=== PATIENT | female | born 1945 | race Caucasian/White ===

== ENCOUNTER 2016-07-19 15:48 | Emergency (ER) | payer MEDICARE ==
[~2016-07-19] VITALS: Ht 167.6 cm; Wt 65.0 kg
[~2016-07-19 15:48] MED LIST: DICL25 PO; MOBI7.5T PO
[2016-07-19 15:50] VITALS: BP 162/86; PULSE 85; RESP 16; TEMP 98.1; O2SAT 98
--- NOTE | 2016-07-19 17:05 | RADRPT ---
EXAM DATE/TIME: 07/19/2016 16:47 [place] COMPARISON: No previous studies available for comparison. INDICATIONS : Patient complains of left hip pain. No known injury. MEDICAL HISTORY : None. SURGICAL HISTORY : Bilateral hip total arthroplasty. ENCOUNTER: Initial ACUITY: 3 weeks PAIN SCORE: 5/10 LOCATION: Left Hip FINDINGS: Bilateral total hip arthroplasties are noted and stable in appearance. There is some heterotopic bone adjacent to the left trochanter and acetabulum. No radiographic evidence of loosening. CONCLUSION: No acute disease. Ney Jenkins MD on July 19, 2016 at 17:03 Board Certified Radiologist. This report was verified electronically.
--- NOTE | 2016-07-19 17:11 | PD ---
HPI Chief Complaint: Pain: Acute or Chronic Time Seen by Provider: 16:51 Travel History International Travel<30 days: No Contact w/Intl Traveler<30days: No Traveled to known affect area: No History of Present Illness HPI 70-year-old female presents to the emergency Department with complaint of left hip pain with worsening this morning. She has history of chronic bilateral hip pain with bilateral hip replacements many years ago. She has been helping her a lot and thinks that it may have exacerbated some pain. She denies traumatic injury. Denies fall. Denies paresthesias, loss of sensation, decreased range of motion, decreased strength to the affected extremity. Denies pain at this time in the ER. Said the pain lasted many hours this morning and finally subsided while she's been waiting to be seen. Denies fever , chills, nausea, vomiting. She did not take any medications or tried any treatments to alleviate her symptoms. Denies dysuria, urgency, frequency. Pain radiated from her mid buttocks down the back of her leg. PFSH Past Medical History Arthritis: Yes Autoimmune Disease: No Blood Disorders: No Heart Rhythm Problems: Yes (WPW) Cancer: No Cardiac Catheterization: Yes Cardiovascular Problems: Yes (cardiac arrythmia) High Cholesterol: No Chemotherapy: No Chest Pain: No Congestive Heart Failure: No Diabetes: No Genitourinary: No Hypertension: No Musculoskeletal: Yes Neurologic: No Psychiatric: No Respiratory: No Myocardial Infarction: No Radiation Therapy: No ?: Not Past Surgical History Abdominal Surgery: No AICD: No Appendectomy: Yes Body Medical Devices: JOINR REPLACEMENT Cardiac Surgery: No Section: Yes (x2) Coronary Artery Bypass Graft: No Ear Surgery: No Endocrine Surgery: No Eye Surgery: No Genitourinary Surgery: No Gynecologic Surgery: Yes () Oral Surgery: No Pacemaker: No Thoracic Surgery: No Other Surgery: Yes (TUMOR REMOVED R FOOT) Social History Alcohol Use: No Tobacco Use: No Substance Use: No Allergies-Medications (Allergen,Severity, Reaction): Coded Allergies: Adhesives (Verified Allergy, Severe, TAPE, 07/19/16) Pronestyl (Verified Allergy, Severe, Rash, 07/19/16) Chocolate (Verified Adverse Reaction, Severe, NAUSEA/VOMITING, 07/19/16) Uncoded Allergies: CHOCOLATE (Allergy, Unknown, NAUSEA & VOMITING, 01/31/05) TAPE (Allergy, Unknown, 01/31/05) Reported Meds & Prescriptions Reported Meds & Active Scripts Active Robaxin (Methocarbamol) 500 Mg Tab 500 Mg PO QID PRN Mobic (Meloxicam) 7.5 Mg Tab 7.5 Mg PO Q12HR Reported Voltaren (Diclofenac Sodium) 25 Mg Tab 25 Mg PO BID PRN Review of Systems Except as stated in HPI: all other systems reviewed are Neg Physical Exam Narrative GENERAL: Well-nourished, well-developed elderly, female patient, in no acute distress SKIN: Warm and dry. HEAD: Atraumatic. Normocephalic. EYES: Pupils equal and round. No scleral icterus. No injection or drainage. ENT: Mucosa pink and moist. Airway patent. NECK: Trachea midline. CARDIOVASCULAR: Regular rate. RESPIRATORY: No accessory muscle use. GASTROINTESTINAL: Round. MUSCULOSKELETAL: Left hip with full range of motion and without erythema, edema , ecchymosis; without tenderness on palpation to the anterior, lateral, posterior aspect; without tenderness on abduction. No leg length discrepancy. Left lower extremity is supple and non-tense with 2+ pedal pulse and sensory intact. NEUROLOGICAL: Awake and alert. Oriented 3. No obvious cranial nerve deficits. Motor grossly within normal limits. Normal speech. PSYCHIATRIC: Appropriate mood and affect; insight and judgment normal. Data Data Last Documented VS Vital Signs Date Time Temp Pulse Resp B/P Pulse Ox O2 Delivery O2 Flow Rate FiO2 07/19/16 15:50 98.1 85 16 162/86 98 Orders Hip, Uni(Ap&Lat) W Ap Pelvis (07/19/16 16:05) [facility] Medical Decision Making Medical Screen Exam Complete: Yes Emergency Medical Condition: Yes Medical Record Reviewed: Yes Differential Diagnosis Sciatica, low back strain, arthritis, hip pain Narrative Course 70-year-old female with left hip pain that has subsided prior to physical examination. Denies injury. History of bilateral hip replacements. Left lower extremity is with full range of motion and no tenderness on abduction. Left hip x-ray with no acute findings. Patient has no pain at this time. Robaxin prescribed for home. Patient is medically cleared and stable for discharge. Discussed reasons to return to the emergency department. Instructed patient to follow up with primary care provider. Patient agrees with treatment plan. The patients vital signs are stable and the patient is stable for outpatient follow-up and treatment. Patient discharged home, stable and in no acute distress. Diagnosis Primary Impression: Left hip pain Referrals: Orthopedist Primary Care Physician Patient Instructions: General Instructions, Hip Pain (ED), Sciatica (ED) Additional Instructions: Tylenol as directed and as needed for pain Robaxin as prescribed and as needed for muscle spasms Rest, ice, compress, and elevate extremity to decrease pain and inflammation Walker for support as needed Avoid aggravating activity; increase activity as tolerated Follow-up with primary care provider Follow-up with orthopedic Return to the emergency department immediately with worsening symptoms Med/Other Pt SpecificInfo: Prescription(s) given Scripts Methocarbamol (Robaxin)500 Mg [id number] Mg PO QID PRN (MUSCLE SPASM) #30 TAB Ref 0 Prov:Maite Fuentes 07/19/16 Disposition: 01 DISCHARGE HOME Condition: Stable Maite Fuentes Jul 19, 2016 17:11
[2016-07-19] MEDS ORDERED: ROBA500T PO (17:20)
== END 2016-07-19 17:34 | disposition home or self-care (01) ==
LOC: NEPB 15:48
DX: M25.552 Pain in left hip (principal); G89.29 Other chronic pain; Z96.643 Presence of artificial hip joint, bilateral
CPT/HCPCS: 73502; 99283

== ENCOUNTER 2017-03-04 02:15 | Emergency (ER) | payer OTHER, MEDICARE ==
[~2017-03-04] VITALS: Ht 170.2 cm; Wt 58.0 kg
[~2017-03-04 02:15] MED LIST changes: +ROBA500T PO
[2017-03-04 02:16] VITALS: BP 127/82; PULSE 72; RESP 16; TEMP 98.7; O2SAT 98
[2017-03-04] MEDS ORDERED: TETANUS/DIPHTHERIA TOXOID ADULT 0.5 ML VIAL IM ONE (02:45)
[2017-03-04 03:06] VITALS: BP 121/81; PULSE 73; RESP 17; O2SAT 97
--- NOTE | 2017-03-04 03:06 | PD ---
Physical Exam Date Seen by Provider: Mar 04, 2017 Time Seen by Provider: 03:05 Narrative For full history and physical examination please see attending provider's note. Data Data Last Documented VS Vital Signs Date Time Temp Pulse Resp B/P (MAP) Pulse Ox O2 Delivery O2 Flow Rate FiO2 03/04/17 02:16 98.7 72 16 127/82 (97) 98 Room Air Orders Orders Tetanus/Diphtheria Tox Adult (Tetanus/Di (03/04/17 02:45) MDM Medical Record Reviewed: Yes Supervised Visit with RUTHANN: Yes Procedures Procedure Narrative LACERATION LOCATION: Left inner forearm just distal to the elbow LENGTH: 4 centimeters NUMBER OF STITCHES/CANDI: 9 stitches REPAIR: The area of the laceration was prepped with Betadine and sterilely draped. The laceration was infiltrated with 1% lidocaine. The wound was copiously irrigated and explored without evidence of foreign body, tendon injury or neurovascular injury. The wound was closed using 4-0 Ethilon. This was a1 layer repair. A sterile dressing was applied. The patient was advised to keep the dressing clean and dry. Patient tolerated the procedure well. Aline Butt Mar 04, 2017 03:06
--- NOTE | 2017-03-04 03:33 | PD ---
HPI Chief Complaint: Laceration/Skin Injury Time Seen by Provider: 02:40 Travel History International Travel<30 days: No Contact w/Intl Traveler<30days: No Traveled to known affect area: No History of Present Illness HPI while patient was getting her laceration repaired by gibran swan, patient complained of a transient spell of dizziness, patient was transfer to my pod at that time. patient states that since of her she has been staying up and not eating well for past few days as well. pt denies any alleviating/ aggravating factors. pt denies associated factors such as rivera/cp/abdpain/n/v/d/ fever/cough/urinary frequency or dysuria pcp: none pmhx: wpw s/p ablation pshx: hip repair gianfranco, appy PFSH Past Medical History Arthritis: Yes Autoimmune Disease: No Blood Disorders: No Heart Rhythm Problems: Yes (WPW) Cancer: No Cardiac Catheterization: Yes Cardiovascular Problems: Yes (cardiac arrythmia) High Cholesterol: No Chemotherapy: No Chest Pain: No Congestive Heart Failure: No Diabetes: No Diminished Hearing: No Genitourinary: No Hypertension: No Musculoskeletal: Yes Neurologic: No Psychiatric: No Respiratory: No Myocardial Infarction: No Radiation Therapy: No Tetanus Vaccination: Unknown ?: Not LMP: menapause Past Surgical History Abdominal Surgery: No AICD: No Appendectomy: Yes Body Medical Devices: JOINR REPLACEMENT Cardiac Surgery: No Section: Yes (x2) Coronary Artery Bypass Graft: No Ear Surgery: No Endocrine Surgery: No Eye Surgery: No Genitourinary Surgery: No Gynecologic Surgery: Yes () Oral Surgery: No Pacemaker: No Thoracic Surgery: No Other Surgery: Yes (TUMOR REMOVED R FOOT) Social History Alcohol Use: No Tobacco Use: No Substance Use: No Allergies-Medications (Allergen,Severity, Reaction): Coded Allergies: adhesive (Unverified Allergy, Severe, TAPE, 12/30/16) procainamide (Unverified Allergy, Severe, Rash, 12/30/16) chocolate flavor (Unverified Adverse Reaction, Severe, NAUSEA/VOMITING, ) Uncoded Allergies: CHOCOLATE (Allergy, Unknown, NAUSEA & VOMITING, 01/31/05) TAPE (Allergy, Unknown, 01/31/05) Reported Meds & Prescriptions Reported Meds & Active Scripts Active Robaxin (Methocarbamol) 500 Mg Tab 500 Mg PO QID PRN Mobic (Meloxicam) 7.5 Mg Tab 7.5 Mg PO Q12HR Reported Voltaren (Diclofenac Sodium) 25 Mg Tab 25 Mg PO BID PRN Review of Systems Except as stated in HPI: all other systems reviewed are Neg HENT: Positive: Lightheadedness Physical Exam Narrative GENERAL: SKIN: Warm and dry. suture repair to right proximal forearm intact and without any drainage or bleeding. HEAD: Atraumatic. Normocephalic. EYES: Pupils equal and round. No scleral icterus. No injection or drainage. ENT: No nasal bleeding or discharge. Mucous membranes pink and moist. NECK: Trachea midline. No JVD. CARDIOVASCULAR: Regular rate and rhythm. RESPIRATORY: No accessory muscle use. Clear to auscultation. Breath sounds equal bilaterally. GASTROINTESTINAL: Abdomen soft, non-tender, nondistended. Hepatic and splenic margins not palpable. MUSCULOSKELETAL: Extremities without clubbing, cyanosis, or edema. No obvious deformities. NEUROLOGICAL: Awake and alert. No obvious cranial nerve deficits. Motor grossly within normal limits. Five out of 5 muscle strength in the arms and legs. Normal speech. PSYCHIATRIC: Appropriate mood and affect; insight and judgment normal. Data Data Last Documented VS Vital Signs Date Time Temp Pulse Resp B/P (MAP) Pulse Ox O2 Delivery O2 Flow Rate FiO2 03/04/17 03:55 75 18 126/80 (95) 80 19 126/81 (96) 78 20 116/78 (91) 03/04/17 03:06 97 Room Air 03/04/17 02:16 98.7 Orders Orders Tetanus/Diphtheria Tox Adult (Tetanus/Di (03/04/17 02:45) Electrocardiogram (03/04/17 03:27) Complete Blood Count With Diff (03/04/17 03:27) Comprehensive Metabolic Panel (03/04/17 03:27) Troponin I (03/04/17 03:27) Thyroid Stimulating Hormone (03/04/17 03:27) Iv Access Insert/Monitor (03/04/17 03:27) Ecg Monitoring (03/04/17 03:27) Oximetry (03/04/17 03:27) Orthostatic Vital Signs (03/04/17 03:27) Labs Laboratory Tests Test 03/04/17 03:46 White Blood Count 6.0 TH/MM3 Red Blood Count 4.65 MIL/MM3 Hemoglobin 14.2 GM/DL Hematocrit 41.7 % Mean Corpuscular Volume 89.6 FL Mean Corpuscular Hemoglobin 30.6 PG Mean Corpuscular Hemoglobin Concent 34.1 % Red Cell Distribution Width 12.9 % Platelet Count 264 TH/MM3 Mean Platelet Volume 7.6 FL Neutrophils (%) (Auto) 59.3 % Lymphocytes (%) (Auto) 25.4 % Monocytes (%) (Auto) 9.8 % Eosinophils (%) (Auto) 3.3 % Basophils (%) (Auto) 2.2 % Neutrophils # (Auto) 3.6 TH/MM3 Lymphocytes # (Auto) 1.5 TH/MM3 Monocytes # (Auto) 0.6 TH/MM3 Eosinophils # (Auto) 0.2 TH/MM3 Basophils # (Auto) 0.1 TH/MM3 CBC Comment DIFF FINAL Differential Comment Blood Urea Nitrogen 10 MG/DL Creatinine 0.82 MG/DL Random Glucose 90 MG/DL Total Protein 7.1 GM/DL Albumin 3.5 GM/DL Calcium Level 8.4 MG/DL Alkaline Phosphatase 89 U/L Aspartate Amino Transf (AST/SGOT) 14 U/L Alanine Aminotransferase (ALT/SGPT) 17 U/L Total Bilirubin 0.4 MG/DL Sodium Level 141 MEQ/L Potassium Level 3.7 MEQ/L Chloride Level 107 MEQ/L Carbon Dioxide Level 28.8 MEQ/L Anion Gap 5 MEQ/L Estimat Glomerular Filtration Rate 68 ML/MIN Troponin I LESS THAN 0.02 NG/ML Thyroid Stimulating Hormone 3rd Gen 1.100 uIU/ML MDM Medical Decision Making Medical Screen Exam Complete: Yes Emergency Medical Condition: Yes Medical Record Reviewed: Yes Interpretation(s) NSR 71, INCOMPLETE RBBB, LAE, NO STEMI PATTERN Differential Diagnosis anemia v dehydration v electrolyte abnl v dysrythmia Narrative Course NO E/O ANEMIA, DEHYDRATION, ELECTROLYTE ABNL ON BLOOD WORK, NL TSH SCREENING, AND EKG SHOWED NO STEMI AND NO DYSRHYTHMIA Diagnosis Primary Impression: RESOLVED LIGHTHEADEDNESS Patient Instructions: General Instructions Disposition: 01 DISCHARGE HOME Condition: Stable Mukesh Araujo MD Mar 04, 2017 03:33
[2017-03-04 03:55] VITALS: BP_SYST 116; BP_SYST 126; BP_DIAS 78; BP_DIAS 80; BP_DIAS 81; RESP 18; RESP 19; RESP 20
[2017-03-04 04:05] LABS: AUTOMATED NEUTROPHIL # 3.6 TH/MM3 (1.8-7.7); BASOPHIL # 0.1 TH/MM3 (0-0.2); BASOPHIL % 2.2 % (0.0-2.0); EOSINOPHIL # 0.2 TH/MM3 (0-0.4); EOSINOPHIL % 3.3 % (0.0-4.0); HEMATOCRIT 41.7 % (35.0-46.0); HEMO FLAGS DIFF FINAL; LYMPH % 25.4 % (9.0-44.0); LYMPHOCYTE # 1.5 TH/MM3 (1.0-4.8); MEAN CELL VOLUME 89.6 FL (80.0-100.0); MEAN CORPUSCULAR HEMOGLOBIN 30.6 PG (27.0-34.0); MEAN CORPUSCULAR HGB CONC 34.1 % (32.0-36.0); MONO % 9.8 % (0.0-8.0); NEUT % 59.3 % (16.0-70.0); PLATELET COUNT 264 TH/MM3 (150-450); RED BLOOD COUNT 4.65 MIL/MM3 (4.00-5.30); RED CELL DISTRIBUTION WIDTH 12.9 % (11.6-17.2)
[2017-03-04 04:12] LABS: ALT (GPT) 17 U/L (10-53); ANION GAP 5 MEQ/L (5-15); AST (GOT) 14 U/L (15-37); BICARBONATE 28.8 MEQ/L (21.0-32.0); BLOOD UREA NITROGEN 10 MG/DL (7-18); CHLORIDE 107 MEQ/L (98-107); GLOMERULAR FILTRATION RATE 68 ML/MIN (>89); POTASSIUM 3.7 MEQ/L (3.5-5.1); SODIUM (NA) 141 MEQ/L (136-145)
[2017-03-04 04:22] LABS: ALKALINE PHOSPHATASE 89 U/L (45-117); TOTAL BILIRUBIN ADULT 0.4 MG/DL (0.2-1.0)
[2017-03-04 04:38] VITALS: BP 120/86
--- NOTE | 2017-03-04 13:52 | EKG ---
Date Performed: 03/04/2017 Time Performed: 03:37:14 PTAGE: 71 years EKG: Sinus rhythm LEFT ATRIAL ENLARGEMENT BORDERLINE LEFT AXIS DEVIATION INCOMPLETE RIGHT BUNDLE BRANCH BLOCK ABNORMAL ECG PREVIOUS TRACING : 02/09/2016 20.48 DOCTOR: Thomas Black Interpretating Date/Time 03/04/2017 13:44:55
== END 2017-03-04 04:55 | disposition home or self-care (01) ==
LOC: NEPC 02:15
DX: R42 Dizziness and giddiness (principal); S51.812A Laceration without foreign body of left forearm, initial encounter; R94.31 Abnormal electrocardiogram [ECG] [EKG]; X58.XXXA Exposure to other specified factors, initial encounter; Z23 Encounter for immunization; Z79.899 Other long term (current) drug therapy
CPT/HCPCS: 12002; 80053; 84443; 84484; 85025; 90471; 90714; 93005